=== PATIENT | male | born 1960 | race Caucasian/White ===

== ENCOUNTER 2024-05-09 08:08 | Inpatient (IN) | payer MEDICARE, OTHER ==
[~2024-05-09] VITALS: Ht 170.2 cm; Wt 81.6 kg
[~2024-05-09 08:08] MED LIST: FENTANYL PF 100MCG/2ML AMPUL ONE; MIDAZOLAM HCL 2 MG/2ML VIAL ONE
[2024-05-09] MEDS ORDERED: VANCOMYCIN 1 GM VIAL ONE (09:58)
[2024-05-09] MEDS ORDERED: dexaMETHasone SOD PHOSPHATE 1 ML ONE (09:58)
[2024-05-09] MEDS ORDERED: LIDOCAINE 2%-EPI 1:100,000 30 ML VIAL ONE (09:58)
[2024-05-09] MEDS ORDERED: HYDROMORPHONE 1 MG/1 ML DISP.SYRIN IV PRN ×2 (10:30→13:30)
[2024-05-09] MEDS: IV NS 0.9% 1,000 ML IV PRN (13:11)
[2024-05-09] MEDS ORDERED: ONDANSETRON HCL/PF 4 MG/2 ML VIAL IVP PRN (13:30)
[2024-05-09] MEDS ORDERED: ACETAMINOPHEN 325 MG TABLET PO PRN (13:30)
[2024-05-09] MEDS ORDERED: EMPA10TA PO (14:34)
[2024-05-09] MEDS ORDERED: CARV12.5 PO (14:34)
[2024-05-09] MEDS ORDERED: FOLI0.4T6 PO (14:34)
[2024-05-09] MEDS ORDERED: TORS20TA3 PO (14:34)
[2024-05-09] MEDS ORDERED: CALC667T8 PO (14:34)
[2024-05-09] MEDS ORDERED: ASPI-1169 PO (14:34)
[2024-05-09] MEDS ORDERED: POTA8CAP20 PO (14:34)
[2024-05-09] MEDS ORDERED: TAMS-12 PO (14:34)
[2024-05-09] MEDS ORDERED: DEXTROSE 50%-WATER 50 ML DISP.SYRIN IV PRN (19:00)
[2024-05-09] MEDS: INSULIN REGULAR, HUMAN 100 UNIT/ML 3 ML VIAL SQ PRN (19:33)
[2024-05-09 20:00] VITALS: BP 122/56; TEMP 97.3; TEMP 97.5; O2SAT 99
[2024-05-09] MEDS: BLOOD SUGAR DIAGNOSTIC 1 EACH STRIP VI SCH (22:11)
[2024-05-09] MEDS: *INSULIN REGULAR(HUMULIN R)HUM 100 UNIT/ML VIAL SQ PRN (22:12)
[2024-05-09] MEDS: VANCOMYCIN 1 GM in IV D5W 250ml IV SCH (22:30)
[2024-05-10 08:59] VITALS: BP 139/73; TEMP 98.1; O2SAT 98
== END 2024-05-10 16:34 | disposition home or self-care (01) | DRG 141 ==
LOC: DS 08:08 → MED 12:56
PROC: 0NSV04Z Reposition Left Mandible with Internal Fixation Device, Open Approach (ICD-10-PCS; principal; 2024-05-09)
PROC: 0NST04Z Reposition Right Mandible with Internal Fixation Device, Open Approach (ICD-10-PCS; 2024-05-09)
PROC: 0N5V0ZZ Destruction of Left Mandible, Open Approach (ICD-10-PCS; 2024-05-09)
PROC: 0N5T0ZZ Destruction of Right Mandible, Open Approach (ICD-10-PCS; 2024-05-09)
PROC: 0KB10ZZ Excision of Facial Muscle, Open Approach (ICD-10-PCS; 2024-05-09)
DX: S02.609A Fracture of mandible, unspecified, initial encounter for closed fracture (principal); M87.9 Osteonecrosis, unspecified; N18.4 Chronic kidney disease, stage 4 (severe); M27.2 Inflammatory conditions of jaws; D16.4 Benign neoplasm of bones of skull and face; X58.XXXA Exposure to other specified factors, initial encounter; Y92.9 Unspecified place or not applicable; E11.22 Type 2 diabetes mellitus with diabetic chronic kidney disease; M27.40 Unspecified cyst of jaw; M60.9 Myositis, unspecified; I25.10 Atherosclerotic heart disease of native coronary artery without angina pectoris; Z95.1 Presence of aortocoronary bypass graft; E11.69 Type 2 diabetes mellitus with other specified complication; I50.9 Heart failure, unspecified; M10.9 Gout, unspecified; Z86.74 Personal history of sudden cardiac arrest; Z95.0 Presence of cardiac pacemaker
CPT/HCPCS: 82962-TC; 88305-TC; 88311-TC; A4338; C1713; G0378; J0330; J1100; J1815; J2250; J2405; J2704; J3010; J3370; J3490; J7030; J7060

== ENCOUNTER 2024-09-27 07:59 | Inpatient (IN) | payer MEDICARE, OTHER ==
[2024-09-27] VITALS (10 sets, daily range): BP systolic 124–159; BP diastolic 65–92; TEMP 97.9–98.2; O2SAT 96–98
[~2024-09-27] VITALS: Ht 170.2 cm; Wt 95.3 kg
[~2024-09-27 07:59] MED LIST changes: +ASPI-1169 PO; +CALC667T8 PO; +CARV12.5 PO; +EMPA10TA PO; -FENTANYL PF 100MCG/2ML AMPUL ONE; +FOLI0.4T6 PO; -MIDAZOLAM HCL 2 MG/2ML VIAL ONE; +POTA8CAP20 PO; +TAMS-12 PO; +TORS20TA3 PO
[2024-09-27] MEDS ORDERED: LIDOCAINE 2%-EPI 1:100,000 30 ML VIAL ONE (09:16)
[2024-09-27] MEDS ORDERED: dexaMETHasone SOD PHOSPHATE 1 ML ONE (09:16)
[2024-09-27] MEDS ORDERED: VANCOMYCIN 1 GM VIAL ONE (09:17)
[2024-09-27] MEDS ORDERED: OXYMETAZOLINE HCL NASAL SPRAY 30 ML BOTTLE NS ONE (09:17)
[2024-09-27] MEDS ORDERED: ALBUMIN 5% 250 ML IV ONE (09:47)
[2024-09-27] MEDS ORDERED: SUGAMMADEX SODIUM 200 MG/2 ML VIAL IV ONE (09:47)
[2024-09-27] MEDS ORDERED: LIDOCAINE 2% JEL UROJET 10 ML MM ONE (09:47)
[2024-09-27] MEDS ORDERED: FAMOTIDINE/PF INJ 20 MG/2 ML VIAL IV ONE (09:48)
[2024-09-27] MEDS ORDERED: MIDAZOLAM HCL 2 MG/2ML VIAL ONE (09:48)
[2024-09-27] MEDS ORDERED: ROCURONIUM BROMIDE 50 MG/5 ML ONE (09:48)
[2024-09-27] MEDS ORDERED: MAG HYDROX/AL HYDROX/SIMETH 30 ML UDC PO PRN (14:30)
[2024-09-27] MEDS ORDERED: DEXTROSE 50%-WATER 50 ML DISP.SYRIN IV PRN (14:30)
[2024-09-27] MEDS ORDERED: ACETAMINOPHEN 325 MG TABLET PO PRN ×2 (14:30→18:00)
[2024-09-27] MEDS ORDERED: MAGNESIUM HYDROXIDE 30 ML UDC PO PRN (14:30)
[2024-09-27] MEDS ORDERED: Z GUARD REMEDY 4 OZ OINT TP PRN (14:30)
[2024-09-27] MEDS ORDERED: ONDANSETRON HCL/PF 4 MG/2 ML VIAL IVP PRN (14:30)
[2024-09-27] MEDS: BLOOD SUGAR DIAGNOSTIC 1 EACH STRIP IN SCH (17:21)
[2024-09-27] MEDS: INSULIN REGULAR, HUMAN 100 UNIT/ML 3 ML VIAL SQ PRN (17:25)
[2024-09-27] MEDS: IV NS 0.9% 1,000 ML IV PRN (17:46)
[2024-09-27] MEDS ORDERED: ONDANSETRON HCL/PF 4 MG/2 ML VIAL IV PRN (18:00)
[2024-09-27] MEDS ORDERED: HYDROMORPHONE 1 MG/1 ML DISP.SYRIN IV PRN (18:00)
[2024-09-27] MEDS: VANCOMYCIN 1 GM in IV D5W 250ml IV SCH (21:58)
[2024-09-28 08:00] VITALS: BP 115/71; TEMP 97.5; O2SAT 96
== END 2024-09-28 11:00 | disposition home or self-care (01) | DRG 908 ==
LOC: DS 07:59 → MED 09:00 → UNDOADMIN 12:31 → MED 12:31 → DS 19:00 → UNDODISIN 09-28 11:00
PROVIDERS: ADMIT Nurse Practitioner Acute Care; ATTEND Dentist Oral and Maxillofacial Surgery
PROC: 0NSR04Z Reposition Maxilla with Internal Fixation Device, Open Approach (ICD-10-PCS; 2024-09-27)
PROC: 0N5V0ZZ Destruction of Left Mandible, Open Approach (ICD-10-PCS; 2024-09-27)
PROC: 0N5T0ZZ Destruction of Right Mandible, Open Approach (ICD-10-PCS; 2024-09-27)
PROC: 0NSV0ZZ Reposition Left Mandible, Open Approach (ICD-10-PCS; 2024-09-27)
PROC: 0NST0ZZ Reposition Right Mandible, Open Approach (ICD-10-PCS; 2024-09-27)
PROC: 09UQ07Z Supplement Right Maxillary Sinus with Autologous Tissue Substitute, Open Approach (ICD-10-PCS; 2024-09-27)
PROC: 0NUV07Z Supplement Left Mandible with Autologous Tissue Substitute, Open Approach (ICD-10-PCS; 2024-09-27)
PROC: 0NUT07Z Supplement Right Mandible with Autologous Tissue Substitute, Open Approach (ICD-10-PCS; 2024-09-27)
PROC: 0NPW04Z Removal of Internal Fixation Device from Facial Bone, Open Approach (ICD-10-PCS; 2024-09-27)
PROC: 0NPW07Z Removal of Autologous Tissue Substitute from Facial Bone, Open Approach (ICD-10-PCS; 2024-09-27)
PROC: 0N5R0ZZ Destruction of Maxilla, Open Approach (ICD-10-PCS; principal; 2024-09-27 10:20)
DX: T86.831 Bone graft failure (principal); S02.609K Fracture of mandible, unspecified, subsequent encounter for fracture with nonunion; T84.69XA Infection and inflammatory reaction due to internal fixation device of other site, initial encounter; Y83.8 Other surgical procedures as the cause of abnormal reaction of the patient, or of later complication, without mention of misadventure at the time of the procedure; Y92.009 Unspecified place in unspecified non-institutional (private) residence as the place of occurrence of the external cause; J32.9 Chronic sinusitis, unspecified; X58.XXXD Exposure to other specified factors, subsequent encounter; J32.0 Chronic maxillary sinusitis; D16.5 Benign neoplasm of lower jaw bone; B97.7 Papillomavirus as the cause of diseases classified elsewhere
CPT/HCPCS: 82962-TC; 87081-TC; A4223; A4338; C1713; G0378; J1100; J1308; J1815; J2250; J2405; J2704; J3370; J3490; J7030; J7040; J7060; P9045